=== PATIENT | male | born 2005 | race Caucasian/White ===

== ENCOUNTER 2024-03-05 22:23 | Emergency (ER) | payer SELFPAY ==
[2024-03-05 22:24] VITALS: BMI 38.8
[2024-03-05 22:25] VITALS: BP 162/106
[2024-03-05 22:43] LABS: % Basophils 0.5 % (0-2); % Eosinophils 0.8 % (0-6); % Immature Granulocytes 0.1 % (0-0.5); % Lymphocytes 33.7 % (20.5-51.1); % Neutrophils 56.9 % (42.2-75.2); Absolute Eosinophils 0.1 10^3/uL (0-0.7); Absolute Lymphocytes 2.7 10^3/uL (1.2-3.4); Absolute Monocytes 0.6 10^3/uL (0.1-0.6); Absolute Neutrophils 4.5 10^3/uL (1.4-6.5); Hemoglobin 14.9 g/dL (13.0-18.0); Mean Corp Hgb Conc. 36.3 g/dL (33.0-37.0); Mean Corpuscular Volume 79.8 fL (80.0-94.0); Nucleated Red Blood Cells % 0 % (-); Platelet Count 255 10^3/uL (130-400); Red Blood Cell Count 5.14 10^6/uL (4.70-6.10); Red Cell Dist. Width 12.1 % (11.5-14.5); White Blood Cell Count 7.9 10^3/uL (4.8-10.8)
[2024-03-05 22:59] LABS: ALT (SGPT) 17 U/L (0-50); AST (SGOT) 24 U/L (17-59); Albumin 4.4 g/dl (3.5-5.0); Alkaline Phosphatase 80 U/L (38-126); Blood Urea Nitrogen 17 mg/dl (9-20); Calcium 9.4 mg/dl (8.4-10.2); Carbon Dioxide 26 mmol/L (22-30); Chloride 105 mmol/L (98-107); Glucose 76 mg/dl (70-99); Potassium 3.9 mmol/L (3.5-5.1); Sodium 140 mmol/L (135-145); Total Bilirubin 0.4 mg/dl (0.2-1.3); eGFR > 60.00
[2024-03-05 23:17] LABS: Troponin I < 0.012 ng/ml
--- NOTE | 2024-03-06 | ED.GENMED ---
History of Present Illness
General
Chief Complaint: Chest Problem
Source: patient
Exam Limitations: none
Time Seen by Provider: 03/05/24 23:28
Travel History
Have you had any contact with someone who has COVID-19?: No
Do you have any symptoms of coronavirus? Fever > 100 degrees, chills, cough, shortness of breath, sore throat, loss of taste or smell, muscle aches, or headache?: No
History of Present Illness
History of Present Illness:
This is a 18 year old male that comes in with c/o chest pain. State taht he has had chest pain for a few months. State that he has been to 2 other ER's with chest pain. States that his pain is all over his chest and it is difficulty for him to
breath. States that occasionally he has vomited up blood. States that sometimes he has tingling in his arms and hands. States that he vomited 3 times before coming here, has a headache and dizziness. Denies any fever, chills, abd pain, nauseas,
diarrhea, urinary burning.
Past History
Past History
ED Past Medical History: None; Negative Asthma, HTN, Hypercholesterolemia or NIDDM
ED Past Surgical History: None
Social History
Tobacco: Smoker
Alcohol: None
Personal: Single
Living: with family
Review of Systems
Review of Systems
All Other Systems: ROS reviewed and negative except as documented in HPI and ROS
Constitutional: Reports no symptoms; Denies fever or chills
EENT: Reports no symptoms
Respiratory: Reports trouble breathing (occasional); Denies cough
Cardiac: Reports chest pain
ABD/GI: Reports vomiting; Denies abdominal pain, nausea or diarrhea
: Reports no symptoms; Denies dysuria, frequency or urgency
Musculoskeletal: Reports no symptoms
Skin: Reports no symptoms
Neurological: Reports dizzy and headache
Psychiatric: Reports no symptoms
Phy Exam
General Physical Exam
General Presentation: no apparent distress
General age: appears stated age
General Skin: warm and dry
General Habitus: normal
General Mental: alert
General Hydration: appears well hydrated
ENT Exam
ENT Exam: TM's normal, pharynx normal and neck supple
Eye Exam
Eye Exam: EOMI
Cardiovascular Exam
Cardiovascular Exam: regular rate/rhythm, no edema, no murmur and normal peripheral pulses
Pulmonary Exam
Pulmonary Exam: lungs clear, no respiratory distress, no rales, chest non tender, no crackles, no rhonchi, no wheezing and no cough
Gastrointestinal Exam
Gastrointestinal Exam: normal bowel sounds, non tender, soft, no organomegaly, no pulsatile mass and non distended
Musculoskeletal Exam
Musculoskeletal Exam: full ROM and no edema
Skin Exam
Skin Exam: normal color, warm/dry, no rash and no petechia
Psychiatric Exam
Psychiatric Exam: normal mood/affect
Course
Orders/Labs/Results
Orders:
Orders
03/05/24 22:27
EKG [Electrocardiogram (*1)] Urgent
Reason for Study: Chest Pain
EKG- Treatment ONCE
03/05/24 22:35
CBC/With Diff [Complete Blood Count/With Diff] Urgent
CMP [Comprehensive Metabolic Panel] Urgent
Troponin I Urgent
03/05/24 23:59
Pantoprazole [Protonix IV] 40 mg IV NOW STA
Sucralfate Suspension [Carafate Suspension] 1 gm PO NOW STA
CR Chest - 2 Views Urgent
Comment:
Reason For Exam: chest pain
03/06/24 01:04
D-Dimer Urgent
Abnormal Lab Results
03/05/24
22:35
MCV 79.8 L fL
(80.0-94.0)
03/05/24 22:35
03/05/24 22:35
Labs unremarkable. Troponin <0.012, D-dimer 0.29
Vital Signs
Initial and Last Documented VS:
Initial Vital Signs
Temp Pulse Resp BP Pulse Ox
98.9 F 100 18 162/106 99
03/05/24 22:25 03/05/24 22:25 03/05/24 22:25 03/05/24 22:25 03/05/24 22:25
Last Documented Vital Signs
Temp Pulse Resp BP Pulse Ox
98.9 F 72 15 162/106 96
03/05/24 22:25 03/06/24 01:19 03/06/24 01:19 03/05/24 22:25 03/06/24 00:00
MDM/Problems Addressed
Differential Diagnosis Includes:
GERD, gastritis,
MDM/Problems Addressed:
This is a 18 year old male that comes in with c/o chest pain. States that this has been going on for a few months and he has been to 2 other ER's in the past. States that he occasionally has vomited up some blood and that he had tingling in his arms
and hand.
Andrea check labs, chest x-ray and medicate with Protonix and Carafate.
back into see patient. patient is sleeping. Awakened. Explained that his blood work is normal along with his chest x-ray. Explained that this may be some gastritis or GERD. Will start patient on Protonix. Encouraged patient to stop any caffeine.
Follow up with the family doctor. Return with any concerns.
Chronic conditions affecting care:
NA
Acute Exacerbation and/or Progression of Chronic Illness:
NA
*Radiology
Radiology exam reviewed: preliminary read by ED provider (Chest-Negative for any cardiopulmonary process. )
*Pulse Oximetry
Patient hypoxic: no
*EKG
Interpreted by ED Provider?: Yes
Heart Rate: 96
Rate: normal
Rhythm: sinus
Wilbur: normal axis
Interval: normal interval
QRS Pattern: normal QRS
Ischemia: no ischemia
*Food Adviser Interpretation
Rate: normal
Heart Rate: 79
Rhythm: sinus
*Critical Care Note
Total Time (30-74mins, 75-104mins- exclusive of procedures): Not Applicable
ED Attending Note
-
Portions of this chart may have been created with voice recognition software.� Occasional wrong word or��sound alike� substitutions may have occurred due to the inherent limitations of voice recognition software.
Discharge Plan
Departure
Patient Disposition: Home (Routine Discharge)
Date of Disposition: 03/06/24
Time of Disposition: 02:33
Patient with high blood pressure during this ER visit?: Yes
Condition: Good
Covid-19: Not Applicable
Discharge Problem:
Chest pain
Instructions: Chest Pain (DC), BLOOD PRESSURE
Referrals:
NONE,* [Family Provider] -
Activity Restrictions/Additional Instructions:
As discussed, your blood work is all normal along with your chest x-ray. This may be due to some reflux or Gastritis. You have been given a prescription for Protonix that will help with both. Please try and stop any soda's with caffeine or
coffee/tea and any energy drink with caffeine as this is hard on the stomach lining. Please follow up with the family doctor. IF YOU HAVE ANY OTHER CONCERNS PLEASE RETURN TO THE EMERGENCY ROOM.
Interventions
Interventions:
*Risk Screen - Suicide Last Done: 03/06/24 01:22
*Neglect/Abuse Screening Last Done: 03/06/24 01:22
ED- Fall Risk Assessment Last Done: 03/06/24 01:22
ED- Cardiac Assessment Last Done: 03/06/24 01:22
ED- Pulmonary Assessment Last Done: 03/06/24 01:22
Discharge Date and Time
Print Language: ALGERIAN
[2024-03-06] MEDS: PROTONIX IV 40 MG IV (00:48)
[2024-03-06] MEDS: CARAFATE SUSPENSION 1 GM PO (00:48)
[2024-03-06 01:25] LABS: D-Dimer 0.29 ug/mlFEU (0.00-0.50)
[2024-03-06 02:40] VITALS: BP 111/68
== END 2024-03-06 02:59 | disposition home or self-care (01) ==
LOC: EMR 22:23
PROVIDERS: Clinical Nurse Specialist Family Health; Emergency Medicine; EMERGENCY PHYSICIAN Student in an Organized Health Care Education/Training Program
DX: R07.89 Other chest pain (principal); K92.0 Hematemesis; R42 Dizziness and giddiness; R51.9 Headache, unspecified; R20.2 Paresthesia of skin; R03.0 Elevated blood-pressure reading, without diagnosis of hypertension; F17.200 Nicotine dependence, unspecified, uncomplicated
CPT/HCPCS: 99284; 96374; 71046; 80053; 84484; 85025; 85379; 93005

== ENCOUNTER 2024-05-11 16:54 | Emergency (ER) | payer SELFPAY ==
[2024-05-11 17:00] VITALS: BP 100/67
[2024-05-11 17:02] VITALS: BP 100/67
[2024-05-11 17:21] LABS: % Basophils 0.4 % (0-2); % Eosinophils 0.1 % (0-6); % Immature Granulocytes 0.2 % (0-0.5); % Lymphocytes 13.7 % (20.5-51.1); % Monocytes 6.9 % (1.7-9.3); % Neutrophils 78.7 % (42.2-75.2); Absolute Lymphocytes 1.3 10^3/uL (1.2-3.4); Absolute Monocytes 0.7 10^3/uL (0.1-0.6); Absolute Neutrophils 7.5 10^3/uL (1.4-6.5); Hematocrit 44.3 % (39.0-52.0); Hemoglobin 16.4 g/dL (13.0-18.0); Mean Corpuscular Hgb 29.2 pg (27.0-31.0); Mean Corpuscular Volume 78.8 fL (80.0-94.0); Mean Platelet Volume 9.1 fL (7.4-10.4); Nucleated Red Blood Cells % 0 % (-); Platelet Count 289 10^3/uL (130-400); Red Blood Cell Count 5.62 10^6/uL (4.70-6.10); Red Cell Dist. Width 12.1 % (11.5-14.5); White Blood Cell Count 9.5 10^3/uL (4.8-10.8)
[2024-05-11 17:44] LABS: ALT (SGPT) 16 U/L (0-50); AST (SGOT) 24 U/L (17-59); Albumin 4.7 g/dl (3.5-5.0); Alkaline Phosphatase 119 U/L (38-126); Blood Urea Nitrogen 13 mg/dl (9-20); Calcium 10.2 mg/dl (8.4-10.2); Carbon Dioxide 19 mmol/L (22-30); Chloride 105 mmol/L (98-107); Glucose 129 mg/dl (70-99); Potassium 3.9 mmol/L (3.5-5.1); Sodium 136 mmol/L (135-145); Total Bilirubin 0.5 mg/dl (0.2-1.3); Total Protein 7.4 g/dl (6.3-8.2); eGFR > 60.00
[2024-05-11 17:55] LABS: Troponin I < 0.012 ng/ml
[2024-05-11 18:00] VITALS: BP 122/83
--- NOTE | 2024-05-11 18:13 | ED.GENMED ---
History of Present Illness
General
Chief Complaint: Chest Pain
Source: patient
Exam Limitations: none
Time Seen by Provider: 05/11/24 18:02
History of Present Illness
History of Present Illness:
See MDM
Past History
Past History
ED Past Medical History: None; Negative Asthma, HTN, Hypercholesterolemia or NIDDM
ED Past Surgical History: None
Social History
Tobacco: Smoker
Alcohol: None
Personal: Single
Living: with family
Phy Exam
Physical Exam
Physical Exam:
See MDM
Scores
Heart Score for Chest Pain Patients
STEMI patient?: No
History: Slightly or Non-Suspicious
ECG: Normal
Age: </= 45 years
Risk Factors: No Risk Factors
Troponin: </= Normal Limit
Heart Score for Chest Pain Patients: 0
Heart Score Risk: 2.5% MACE over next 6 weeks
Course
Orders/Labs/Results
Orders:
Orders
05/11/24 16:57
Electrocardiogram (*1) Urgent
Reason for Study: Chest Pain
EKG- Treatment ONCE
05/11/24 17:09
Complete Blood Count/With Diff Urgent
Comprehensive Metabolic Panel Urgent
Troponin I Urgent
05/11/24 18:11
CT Chest Pe Study Urgent
Comment:
Reason For Exam: SOB, chest pain, hemoptysis
Ketorolac [Toradol] 30 mg IV NOW STA
Lorazepam [Ativan] 0.5 mg IV NOW STA
Abnormal Lab Results
05/11/24
17:09
MCV 78.8 L fL
(80.0-94.0)
Absolute Neuts (auto) 7.5 H 10^3/uL
(1.4-6.5)
Absolute Monos (auto) 0.7 H 10^3/uL
(0.1-0.6)
Neutrophils % 78.7 H %
(42.2-75.2)
Lymphocytes % 13.7 L %
(20.5-51.1)
Carbon Dioxide 19 L mmol/L
(22-30)
Glucose 129 H mg/dl
(70-99)
05/11/24 17:09
05/11/24 17:09
Vital Signs
Initial and Last Documented VS:
Initial Vital Signs
Temp Pulse Resp BP Pulse Ox
98.6 F 118 18 100/67 99
05/11/24 17:00 05/11/24 17:00 05/11/24 17:00 05/11/24 17:00 05/11/24 17:00
Last Documented Vital Signs
Temp Pulse Resp BP Pulse Ox
98.6 F 99 20 133/74 95
05/11/24 17:00 05/11/24 20:11 05/11/24 20:11 05/11/24 20:11 05/11/24 20:11
MDM/Problems Addressed
Differential Diagnosis Includes:
HPI and MDM Narrative:
18-year-old male presenting for evaluation of chest pain. Patient states he was walking down the street and developed sudden onset of chest pain which caused him to collapse. He does not think he passed out. On arrival, patient feeling better but
still tachycardic. He states he has had issues like this for the past few months. He blames this on an inhalation injury from her prior job. However, the symptoms come and go. Patient states he has had blood tinged sputum over the past few days.
He denies any recent trauma, travel or leg pain. Blood work was done prior to my assessment. Troponin negative. EKG tachycardic but nonischemic. Given the tachycardia, chest pain and hemoptysis, will obtain CT to rule out PE
Physical exam
General: Well appearing and non-toxic
HEENT: protecting airway
Neck: appears supple
CV: No evidence of cyanosis. Tachycardic and regular. No murmur
Resp: No accessory muscle use. Lungs clear
Abd: Non-distended
Extremities: No deformities
Neuro: alert
Psych: Anxious
Skin: Intact
Problems Addressed including Acute and Chronic Conditions affecting care:
1. Chest pain and hemoptysis
Acuity: acute
Prognosis: stable
Details: Given his issues, obtain CT to rule out PE. Will give Toradol and Ativan
Updates
CT negative for PE. Patient placed on the pulmonary nodule messaging board by radiology.
Differential Diagnosis (but not limited to): Anxiety, syncope, tachyarrhythmia, PE
Testing considered: D-dimer
Drug therapy (if applicable): OTC meds, please see d/c instruction regarding Rx drugs
Amount and/or Complexity of Data Reviewed
Clinical info obtained from: Patient
External data reviewed: N/A
Labs I independently reviewed (but not limited to): Troponin normal
Radiology: N/A
Pulse Ox: not hypoxic
EKG independently reviewed: Sinus tachycardia, normal axis, no STEMI
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
Critical Care: N/A
Risk of Complication:
Social Determinants of health: Good social support
Discussed with other providers: N/A
Escalation of Care includes Admit/Obs: After being observed in the Emergency Department, pt stable for discharge.
Occasional wrong word or 'sound a like' substitutions may have occurred due to the inherent limitations of voice recognition software. Read the chart carefully and recognize, using context, where substitutions have occurred.
*Critical Care Note
Total Time (30-74mins, 75-104mins- exclusive of procedures): Not Applicable
ED Attending Note
-
Portions of this chart may have been created with voice recognition software.� Occasional wrong word or��sound alike� substitutions may have occurred due to the inherent limitations of voice recognition software.
Discharge Plan
Departure
Patient Disposition: Home (Routine Discharge)
Date of Disposition: 05/11/24
Time of Disposition: 20:16
Patient with high blood pressure during this ER visit?: No
Discharge Problem:
Chest pain
Instructions: Chest Pain That Is Not Caused by the Heart (DC)
Referrals:
[facility] [Outside]
NONE,* [Family Provider] -
Ney Georges MD [Active] -
Activity Restrictions/Additional Instructions:
Please return for any worsening symptoms.
You may return at any time if you have further concerns.
Please follow up with the clinic.
Thank you for choosing [facility].
Interventions
Interventions:
*Risk Screen - Suicide Last Done: 05/11/24 17:00
*General Assessment Last Done: 05/11/24 17:00
*Neglect/Abuse Screening Last Done: 05/11/24 17:00
ED- Cardiac Assessment Last Done: 05/11/24 17:20
Discharge Date and Time
Print Language: LAO
[2024-05-11] MEDS: TORADOL 30 MG IV (18:17)
[2024-05-11] MEDS: ATIVAN 0.5 MG IV (18:17)
[2024-05-11 18:25] VITALS: BP 133/74
[2024-05-11 20:11] VITALS: BP 133/74
[2024-05-11 20:32] VITALS: BP 139/85
--- NOTE | 2024-05-18 08:54 | OID.L.PAT ---
Pulmonary Nodule Pat Letter
- -
05/18/24
ALYSSA ASCENCIO
[address]
[place], [place]
Gloria SHAH,
A pulmonary nodule was seen on an imaging study done by [facility]. This was reviewed by the [facility] Pulmonary Nodule Advisory Board and the following recommendation was made:
Recommendation: Follow up CT Chest in one year
If you have any questions, please do not hesitate to contact your primary care physician. If you are in need of a Physician, you can go to [email or web address] and click on 'Find a Provider'. Type 'Family Medicine' in the search.
Oncology Nurse Navigator
[facility]
[phone]
--- NOTE | 2024-05-18 08:54 | OID.L.REC ---
Pulmonary Nodule Follow Up
- Recommendation
05/18/24
Pulmonary Nodule Review Recommendations
Your patient, ALYSSA ASCENCIO, had a pulmonary nodule seen on an imaging study done on 05/11/24 in the [facility] Emergency Room.
This was reviewed by the [facility] Pulmonary Nodule Advisory Board and the following recommendation was made:
Recommendation: Follow up CT Chest in one year
If you have any questions please do not hesitate to contact us.
Sincerely,
Oncology Nurse Navigator
[facility]
[phone]
== END 2024-05-11 20:33 | disposition home or self-care (01) ==
LOC: EMR 16:54
PROVIDERS: EMERGENCY PHYSICIAN Student in an Organized Health Care Education/Training Program
DX: R07.89 Other chest pain (principal); R55 Syncope and collapse; R04.2 Hemoptysis; R00.0 Tachycardia, unspecified; T75.89XA Other specified effects of external causes, initial encounter; X58.XXXA Exposure to other specified factors, initial encounter; Y93.89 Activity, other specified; Y92.89 Other specified places as the place of occurrence of the external cause; Y99.0 Civilian activity done for income or pay; R91.1 Solitary pulmonary nodule; F17.200 Nicotine dependence, unspecified, uncomplicated
CPT/HCPCS: 99285; 96374; 96375; 71275; 80053; 84484; 85025; 93005; Q9967